=== PATIENT | male | born 1965 | race American Indian/Alaskan Native ===

== ENCOUNTER 2021-06-21 11:20 | Emergency (ER) | payer OTHER ==
[2021-06-21 15:38] VITALS: BP 169/86
[2021-06-21] MEDS: IBUPROFEN 600 MG TAB PO ONE (22:04)
[2021-06-21] MEDS: LIDOCAINE-MPF (1%) 10 MG/1 ML VIAL 5 ML INFILTRATI ONE (22:04)
[2021-06-21] MEDS: TETANUS,DIPH,PERTUSS(ACELL) VACCINE 0.5 ML SYRINGE IM ONE (22:09)
[2021-06-21] MEDS: ACETAMINOPHEN 500 MG TAB PO ONE (22:10)
--- NOTE | 2021-06-22 01:27 | Emergency Department Report ---
- General Chief Complaint: Laceration/Recheck/Suture Stated Complaint: RT HAND INJURY/LAC Source: patient Mode of arrival: Ambulatory Limitations: No Limitations - History of Present Illness Initial Comments: Patient is a 55-year-old -[place] male with no past medical history presents to the ED with complaint of acute onset persistent dorsal right hand and dorsal right middle finger laceration wound that he sustained after a knife that he was watching in the kitchen slipped off his hand and cut his right hand about 12 hours ago. Patient states that he is not up-to-date with his tetanus vaccinations. Patient denies numbness and tingling or weakness of right hand, dizziness, syncope, nausea and vomiting, fall, heavy lifting or change in vision. -: Sudden, hour(s) (12) Location: other (Right hand) Extremity Location: Right: Hand (Dorsal right hand and right middle finger laceration) Place: home Patient Tetanus UTD: No Context: accidental, sharp object use Associated Symptoms: pain. denies: loss of feeling/numbness, suspect foreign body present, unable to move injured part, weakness followed by dizziness, nausea/vomiting, fever Treatments Prior to Arrival: bandage - Related Data Previous Rx's Medication Instructions Recorded Last Taken Type Ibuprofen [Motrin] 800 mg PO Q8HR PRN #30 tablet 06/22/21 Unknown Rx cephALEXin [Keflex] 500 mg PO Q8HR #30 cap 06/22/21 Unknown Rx Allergies Allergy/AdvReac Type Severity Reaction Status Date / Time No Known Allergies Allergy Unverified 06/21/21 15:36 ED Review of Systems ROS: Stated complaint: RT HAND INJURY/LAC Other details as noted in HPI Constitutional: denies: chills, fever Eyes: denies: eye pain, eye discharge, vision change ENT: denies: ear pain, throat pain Respiratory: denies: cough, shortness of breath, wheezing Cardiovascular: denies: chest pain, palpitations Endocrine: no symptoms reported Gastrointestinal: denies: abdominal pain, nausea, diarrhea Genitourinary: denies: urgency, dysuria Musculoskeletal: arthralgia (Dorsal right hand pain due to bleeding laceration on dorsal right hand and dorsal right middle finger). denies: back pain, joint swelling Skin: other (Bleeding laceration wound on dorsal right middle finger and dorsal right hand with localized pain). denies: rash, lesions Neurological: denies: headache, weakness, paresthesias Psychiatric: denies: anxiety, depression Hematological/Lymphatic: denies: easy bleeding, easy bruising ED Past Medical Hx - Medications Home Medications: Home Medications Medication Instructions Recorded Confirmed Last Taken Type Ibuprofen [Motrin] 800 mg PO Q8HR PRN #30 tablet 06/22/21 Unknown Rx cephALEXin [Keflex] 500 mg PO Q8HR #30 cap 06/22/21 Unknown Rx ED Physical Exam - General Limitations: No Limitations General appearance: alert, in no apparent distress - Head Head exam: Present: atraumatic, normocephalic, normal inspection - Eye Eye exam: Present: normal appearance, PERRL, EOMI Pupils: Present: normal accommodation - ENT ENT exam: Present: normal exam, normal orophraynx, mucous membranes moist, TM's normal bilaterally, normal external ear exam - Neck Neck exam: Present: normal inspection, full ROM. Absent: tenderness - Respiratory Respiratory exam: Present: normal lung sounds bilaterally. Absent: respiratory distress, wheezes, rales, rhonchi, chest wall tenderness, accessory muscle use, decreased breath sounds - Cardiovascular Cardiovascular Exam: Present: regular rate, normal rhythm, normal heart sounds. Absent: systolic murmur, diastolic murmur, rubs, gallop - GI/Abdominal GI/Abdominal exam: Present: soft, normal bowel sounds. Absent: tenderness, guarding, hyperactive bowel sounds, hypoactive bowel sounds - Extremities Exam Extremities exam: Present: normal inspection, full ROM, tenderness (Palpable dorsal right hand tenderness due to a bleeding 6 cm laceration on dorsal right hand, and 2 cm of dorsal right middle finger laceration wound), normal capillary refill. Absent: joint swelling - Back Exam Back exam: Present: normal inspection, full ROM. Absent: tenderness, CVA tenderness (R), CVA tenderness (L), muscle spasm, paraspinal tenderness, vertebral tenderness - Neurological Exam Neurological exam: Present: alert, oriented X3, CN II-XII intact, normal gait, reflexes normal - Psychiatric Psychiatric exam: Present: normal affect, normal mood - Skin Skin exam: Present: warm, dry, intact, normal color, other (Bleeding 6 mm laceration on dorsal right hand; bleeding 2 cm laceration on dorsal right middle finger). Absent: rash ED Course Vital Signs 06/21/21 15:36 Temperature 98.2 F Pulse Rate 85 Respiratory 18 Rate Blood Pressure 169/86 [Right] O2 Sat by Pulse 97 Oximetry - Laceration /Wound Repair Right Dorsal Hand Wound Location: upper extremity (Dorsal right hand laceration) Wound Length (cm): 6 Wound's Depth, Shape: superficial, linear Wound Explored: contaminated Irrigated w/ Saline (ccs): 200 Betadine Prep?: No Anesthesia: 1% Lidocaine Volume Anesthetic (ccs): 5 Wound Debrided: extensive Wound Repaired With: sutures Suture Size/Type: 4:0, proline Number of Sutures: 12 Layer Closure?: No Sterile Dressing Applied?: Yes Progress: The area was cleaned extensively with normal saline and 1% lidocaine solution was used as a local anesthetic. When anesthesia was fully achieved, the wound was sutured with Prolene 4-0 sutures with for a total of 12 sutures. Patient tolerated procedure well. The wound was then cleaned again with normal saline and dressed appropriately with 4 x 4 gauze and Kerlix. Right Dorsal Finger Wound Location: upper extremity (dorsal right middle finger) Wound Length (cm): 2 Wound's Depth, Shape: superficial, linear Wound Explored: contaminated Irrigated w/ Saline (ccs): 200 Betadine Prep?: No Anesthesia: 1% Lidocaine Volume Anesthetic (ccs): 5 Wound Debrided: extensive Wound Repaired With: sutures Suture Size/Type: 4:0, proline Number of Sutures: 4 Layer Closure?: No Sterile Dressing Applied?: No ED Medical Decision Making - Medical Decision Making This is a 55-year-old -[place] male with no past medical history presents to the ED with complaint of acute onset persistent dorsal right hand and dorsal right middle finger laceration wound that he sustained after a knife that he was watching in the kitchen slipped off his hand and cut his right hand about 12 hours ago. Patient states that he is not up-to-date with his tetanus vaccinations. Patient was treated for pain in the ED and also given booster tetanus vaccinations. The wound was extensively debrided with normal saline and 1% lidocaine solution used as anesthetic. When anesthesia was fully achieved, the dorsal right middle finger and right hand laceration wounds were sutured per protocol. Patient tolerated the procedure well. The wounds were then dressed appropriately and the patient discharged home on pain medications and antibiotics and was advised to return to the ED immediately if symptoms get worse. Patient was also advised to follow-up with his primary care physician in 7 to 10 days for reevaluation and to return to the ED or to the primary care physician in 12 to 14 days for suture removal. - Differential Diagnosis puncture wound; laceration; hand injury Critical care attestation.: If time is entered above; I have spent that time in minutes in the direct care of this critically ill patient, excluding procedure time. ED Disposition Clinical Impression: Laceration of right hand without complication, including fingers Qualifiers: Encounter type: initial encounter Qualified Code(s): S61.411A - Laceration without foreign body of right hand, initial encounter Laceration of right middle finger w/o foreign body w/o damage to nail Qualifiers: Encounter type: initial encounter Qualified Code(s): S61.212A - Laceration without foreign body of right middle finger without damage to nail, initial encounter Disposition: HOME / SELF CARE / HOMELESS Is pt being admited?: No Does the pt Need Aspirin: No Condition: Stable Instructions: Wound Infection, [id number], Laceration Care, Adult, [id number], Sutured Wound Care, [id number] Additional Instructions: Take medication with food, drink plenty of fluids and follow-up with your primary care physician in 7 to 10 days for reevaluation. Return to the ED immediately if symptoms get worse. Otherwise return to the ED or to your primary care physician in 12 to 14 days for suture removal. Prescriptions: cephALEXin [Keflex] 500 mg PO Q8HR #30 cap Ibuprofen [Motrin] 800 mg PO Q8HR PRN #30 tablet PRN Reason: Pain , Severe (7-10) Referrals: MD HUNG [Other] - 3-5 Days Forms: Accompanied Note, Work/School Release Form(ED) Time of Disposition: 01:29 Print Language: SWISS
== END 2021-06-22 01:57 | disposition home or self-care (01) ==
LOC: ED 11:20
DX: S61.411A Laceration without foreign body of right hand, initial encounter (principal); S61.212A Laceration without foreign body of right middle finger without damage to nail, initial encounter; W26.0XXA Contact with knife, initial encounter; Y93.89 Activity, other specified; Y92.89 Other specified places as the place of occurrence of the external cause; Y99.8 Other external cause status
CPT/HCPCS: 12002; 90471; 90715; 99282; J3490

== ENCOUNTER 2021-07-05 10:45 | Emergency (ER) | payer OTHER ==
[2021-07-05 11:28] VITALS: BP 147/87
--- NOTE | 2021-07-05 12:47 | Emergency Department Report ---
Suture/Staple Removal - HPI Chief Complaint: Laceration/Recheck/Suture Stated Complaint: STITCHES REMOVED Time Seen by Provider: 07/05/21 12:22 When Sutures or [place] Placed: 11-14 Days Ago ED Review of Systems ROS: Stated complaint: STITCHES REMOVED Other details as noted in HPI Comment: All other systems reviewed and negative Constitutional: denies: chills, fever Respiratory: denies: shortness of breath Cardiovascular: denies: chest pain, palpitations Gastrointestinal: denies: nausea, vomiting Musculoskeletal: denies: back pain Skin: denies: rash, lesions ED Past Medical Hx - Medications Home Medications: Home Medications Medication Instructions Recorded Confirmed Last Taken Type Ibuprofen [Motrin] 800 mg PO Q8HR PRN #30 tablet 06/22/21 Unknown Rx cephALEXin [Keflex] 500 mg PO Q8HR #30 cap 06/22/21 Unknown Rx Suture Removal Exam - Exam General: Vital signs noted. No distress. Alert and acting appropriately. Wound: No Pathologic Erythema, No Tenderness, No Drainage, No Pus, No Wound Dehiscence Other Systems: All other systems reviewed and are unremarkable. ED Course Vital Signs 07/05/21 11:26 Temperature 98.7 F Pulse Rate 85 Respiratory 18 Rate Blood Pressure 147/87 [Right] O2 Sat by Pulse 98 Oximetry - Procedure Description Procedures done: Suture removal: 12 sutures removed from healed laceration to left index finger then 4 sutures removed from left ring finger. Wound well approximated no erythema edema or drainage noted. Patient denies pain fever. Patient tolerated well. ED Recheck MDM - Differential Diagnosis Suture/Staple Removal - Medical Decision Making Suture removal per procedure note. Patient tolerated well. No acute distress noted. Patient to be discharged home and advised to return to the emergency department for any concerning symptoms. He verbalized understanding of and agreement with plan of care. Critical care attestation.: If time is entered above; I have spent that time in minutes in the direct care of this critically ill patient, excluding procedure time. ED Disposition Clinical Impression: Visit for suture removal Disposition: HOME / SELF CARE / HOMELESS Is pt being admited?: No Does the pt Need Aspirin: No Condition: Stable Instructions: Suture Removal, Care After Additional Instructions: Follow-up with primary care provider as needed. Referrals: PRIMARY CARE, [Primary Care Provider] - 3-5 Days Forms: Work/School Release Form(ED) Time of Disposition: 12:47
== END 2021-07-05 12:54 | disposition home or self-care (01) ==
LOC: ED 10:45
DX: S61.211D Laceration without foreign body of left index finger without damage to nail, subsequent encounter (principal); X58.XXXD Exposure to other specified factors, subsequent encounter
CPT/HCPCS: 99282